=== PATIENT | male | born 1975 | race Two or more races ===

== ENCOUNTER 2017-09-25 21:18 | Inpatient (IN) | payer MEDICAID ==
[~2017-09-25] VITALS: Ht 177.8 cm; Wt 96.2 kg
[2017-09-26 05:57] LABS: Basophils # (auto) 0 uL; Basophils % (auto) 0.4 % (0.0-2.0); Eosinophils # (auto) 0.2 uL; Eosinophils % (auto) 1.7 % (0.0-7.0); Hematocrit 45.4 % (41.0-53.0); Hemoglobin 15.5 g/dL (13.5-17.5); Lymphocytes # (auto) 1.3 uL; Lymphocytes % (auto) 14.8 % (10.0-50.0); Mean Corpuscular Hemoglobin 31.1 pg (28.0-32.0); Mean Corpuscular Hgb Conc. 34.1 g/dL (32.0-36.0); Mean Corpuscular Volume 91.1 fL (80.0-100.0); Mean Platelet Volume 7.2 fL (6.9-10.8); Monocytes # (auto) 0.6 uL; Neutrophils # (auto) 6.9 uL; Neutrophils % (auto) 76.1 % (37.0-80.0); Nucleated Red Blood Cells % 0.1 %; Platelet Count (auto) 279 10^3/uL (140-450); White Blood Cell 9.1 10^3/uL (4.4-10.8)
[2017-09-26 06:26] LABS: Albumin 4.1 g/dL (3.4-5.0); BUN/Creatinine Ratio 20.7; Bilirubin, Total 0.6 mg/dL (0.2-1.0); Calcium 9.4 mg/dL (8.5-10.1); Potassium 3.7 mmol/L (3.5-5.1)
[2017-09-26] MEDS ORDERED: metroNIDAZOLE 500MG/100ML 100 ML IV ONE (08:30)
[2017-09-26] MEDS ORDERED: PIPERACILLIN-TAZOB 3.375GM 50 ML IV ONE (08:30)
[2017-09-26] MEDS ORDERED: NICOTINE 14 MG/24HR TOPICAL PATCH TD ONE (10:15)
[2017-09-26] MEDS ORDERED: DOCUSATE SOD 100 MG CAP PO PRN (10:15)
[2017-09-26] MEDS ORDERED: TEMAZEPAM 15 MG CAP PO PRN (10:15)
[2017-09-26] MEDS ORDERED: ACETAMINOPHEN 325 MG TAB PO PRN (10:15)
[2017-09-26] MEDS ORDERED: ONDANSETRON HCL 4 MG/2 ML VIAL IV PRN (10:15)
[2017-09-26] MEDS ORDERED: DEXTROSE (50%) 50ML SYRG IV PRN (10:30)
[2017-09-26] MEDS ORDERED: VANCOMYCIN PER PHARMACY 0 MG IV SCH (10:30)
[2017-09-26] MEDS ORDERED: IOHEXOL 350 MG/ML 100ML IJ ONE (10:34)
[2017-09-26] MEDS: SODIUM CHLORIDE 0.9% 1,000 ML IV SCH ×2 (11:03→17:20)
[2017-09-26 11:10] LABS: Lactic Acid w/Reflex 7.6 mmol/L (0.4-2.0)
[2017-09-26 11:11] LABS: REFLEX LACTIC ACID YES OR NO YES
[2017-09-26] MEDS: ACCU-CHEK COMFORT CURVE STRIP VI SCH ×3 (11:42→21:17)
[2017-09-26] MEDS: InsuLIN REG 1unit/0.01ml Soln (100units/ml) SC SCH ×3 (11:56→21:18)
[2017-09-26] MEDS ORDERED: VANCOMYCIN 1,500 MG in SODIUM CHL 0.9% 250 ML IV SCH (12:00)
[2017-09-26 13:00] VITALS: BP 119/71
[2017-09-26] MEDS ORDERED: PIPERACILLIN-TAZOB 3.375GM 50 ML IV SCH (15:00)
[2017-09-26 15:31] LABS: Lactic Acid w/Reflex 3.9 mmol/L (0.4-2.0)
[2017-09-26 15:51] LABS: REFLEX LACTIC ACID YES OR NO YES
[2017-09-26 17:00] VITALS: BP 101/65
[2017-09-26] MEDS: HYDROcodone-ACET 5/325MG TAB PO PRN ×2 (17:42→23:19)
[2017-09-26 18:39] LABS: Urine Bilirubin Negative (Negative); Urine Blood Negative /uL (Negative); Urine Color Yellow (Yellow); Urine Glucose 1+ mg/dL (Normal); Urine Ketone 1+ (Negative); Urine Mucus FEW (None Seen); Urine Nitrite Negative (Negative); Urine RBC 5 /hpf (0 - 3); Urine Urobilinogen Normal (Negative)
[2017-09-26] MEDS: FAMOTIDINE 20 MG TAB PO SCH (21:17)
[2017-09-26] MEDS: ASCORBIC ACID 500 MG TAB PO SCH (21:17)
[2017-09-26] MEDS: INSULIN DETEMIR(LEVEMIR) 1unit/0.01ml Soln (100units/ml) SC SCH (21:18)
[2017-09-26 22:00] VITALS: BP 108/66
[2017-09-26] MEDS: VANCOMYCIN 1,500 MG in D5W 5% 250 ML IV SCH (23:19)
[2017-09-27] MEDS ORDERED: INSLANTI SC (02:25)
[2017-09-27] MEDS: SODIUM CHLORIDE 0.9% 1,000 ML IV SCH ×3 (02:49→19:29)
[2017-09-27 05:00] VITALS: BP 103/68
[2017-09-27] MEDS: InsuLIN REG 1unit/0.01ml Soln (100units/ml) SC SCH ×4 (06:11→22:04)
[2017-09-27] MEDS: ACCU-CHEK COMFORT CURVE STRIP VI SCH ×4 (06:11→21:58)
[2017-09-27 07:10] LABS: Basophils # (auto) 0 uL; Basophils % (auto) 0.4 % (0.0-2.0); Eosinophils # (auto) 0.1 uL; Eosinophils % (auto) 1.8 % (0.0-7.0); Hematocrit 41.6 % (41.0-53.0); Lymphocytes # (auto) 1.4 uL; Lymphocytes % (auto) 19.7 % (10.0-50.0); Mean Corpuscular Hemoglobin 30.6 pg (28.0-32.0); Mean Corpuscular Hgb Conc. 33.6 g/dL (32.0-36.0); Mean Platelet Volume 7.4 fL (6.9-10.8); Monocytes # (auto) 0.3 uL; Monocytes % (auto) 4.4 % (0.0-12.0); Neutrophils # (auto) 5.3 uL; Neutrophils % (auto) 73.7 % (37.0-80.0); Nucleated Red Blood Cells % 0.2 %; Platelet Count (auto) 176 10^3/uL (140-450); Red Cell Distribution Width 13.2 % (11.8-14.3); White Blood Cell 7.2 10^3/uL (4.4-10.8)
[2017-09-27 07:38] LABS: Albumin 2.9 g/dL (3.4-5.0); BUN/Creatinine Ratio 31.5; Calcium 8.7 mg/dL (8.5-10.1); Potassium 3.2 mmol/L (3.5-5.1)
[2017-09-27 08:13] LABS: Bilirubin, Total 0.4 mg/dL (0.2-1.0); Total Protein 6.4 g/dL (6.4-8.2)
[2017-09-27] MEDS: NICOTINE 14 MG/24HR TOPICAL PATCH TD SCH (08:45)
[2017-09-27] MEDS: FAMOTIDINE 20 MG TAB PO SCH ×2 (08:46→21:57)
[2017-09-27] MEDS: MULTIPLE VITAMIN TAB PO SCH (08:46)
[2017-09-27] MEDS: LEVOFLOXACIN 500MG 100 ML IV SCH (08:46)
[2017-09-27] MEDS: ASCORBIC ACID 500 MG TAB PO SCH ×2 (08:46→21:57)
[2017-09-27] MEDS: ZINC SULFATE 220 MG CAP PO SCH (08:46)
[2017-09-27 09:00] VITALS: BP 96/60
[2017-09-27] MEDS ORDERED: POTASSIUM CHLORIDE 40 MEQ, LIDOCAINE 1% (LOCAL ANESTH.) 4 ML in SODIUM CHL 0.9% 250 ML IV ONE (10:15)
[2017-09-27] MEDS: VANCOMYCIN 1,500 MG in D5W 5% 250 ML IV SCH (11:59)
[2017-09-27 13:00] VITALS: BP 104/68
[2017-09-27 17:00] VITALS: BP 122/76
[2017-09-27] MEDS: INSULIN DETEMIR(LEVEMIR) 1unit/0.01ml Soln (100units/ml) SC SCH (22:05)
[2017-09-27] MEDS: HYDROcodone-ACET 5/325MG TAB PO PRN (22:06)
[2017-09-27 22:14] VITALS: BP 128/86
[2017-09-28] MEDS: SODIUM CHLORIDE 0.9% 1,000 ML IV SCH ×3 (03:49→20:29)
[2017-09-28 04:52] VITALS: BP 109/74
[2017-09-28 06:03] LABS: Basophils # (auto) 0 uL; Basophils % (auto) 0.7 % (0.0-2.0); Eosinophils # (auto) 0.3 uL; Eosinophils % (auto) 4.6 % (0.0-7.0); Hemoglobin 13.3 g/dL (13.5-17.5); Lymphocytes # (auto) 2.2 uL; Lymphocytes % (auto) 34.4 % (10.0-50.0); Mean Corpuscular Hemoglobin 30.8 pg (28.0-32.0); Mean Corpuscular Hgb Conc. 34.1 g/dL (32.0-36.0); Mean Corpuscular Volume 90.5 fL (80.0-100.0); Mean Platelet Volume 7.4 fL (6.9-10.8); Monocytes # (auto) 0.7 uL; Monocytes % (auto) 10.9 % (0.0-12.0); Neutrophils # (auto) 3.2 uL; Neutrophils % (auto) 49.4 % (37.0-80.0); Platelet Count (auto) 177 10^3/uL (140-450); Red Cell Distribution Width 13.1 % (11.8-14.3); White Blood Cell 6.5 10^3/uL (4.4-10.8)
[2017-09-28 06:24] LABS: Albumin 2.9 g/dL (3.4-5.0); BUN/Creatinine Ratio 33.9; Calcium 8.3 mg/dL (8.5-10.1); Potassium 3.6 mmol/L (3.5-5.1)
[2017-09-28 06:31] LABS: Bilirubin, Total 0.3 mg/dL (0.2-1.0); Total Protein 6.1 g/dL (6.4-8.2)
[2017-09-28] MEDS: ACCU-CHEK COMFORT CURVE STRIP VI SCH ×4 (06:34→22:00)
[2017-09-28] MEDS: InsuLIN REG 1unit/0.01ml Soln (100units/ml) SC SCH ×4 (06:35→22:12)
[2017-09-28 08:00] VITALS: BP 100/54
[2017-09-28 09:25] VITALS: BP 100/54
[2017-09-28] MEDS: ASCORBIC ACID 500 MG TAB PO SCH ×2 (09:47→22:23)
[2017-09-28] MEDS: FAMOTIDINE 20 MG TAB PO SCH ×2 (09:47→22:00)
[2017-09-28] MEDS: LEVOFLOXACIN 500MG 100 ML IV SCH (09:47)
[2017-09-28] MEDS: MULTIPLE VITAMIN TAB PO SCH (09:47)
[2017-09-28] MEDS: NICOTINE 14 MG/24HR TOPICAL PATCH TD SCH (09:48)
[2017-09-28] MEDS: ZINC SULFATE 220 MG CAP PO SCH (09:48)
[2017-09-28] MEDS: VANCOMYCIN 1,500 MG in D5W 5% 250 ML IV SCH ×4 (11:57→23:45)
[2017-09-28 13:14] VITALS: BP 133/84
[2017-09-28 17:09] VITALS: BP 130/81
[2017-09-28] MEDS: HYDROcodone-ACET 5/325MG TAB PO PRN ×2 (21:06→22:53)
[2017-09-28 22:00] VITALS: BP 119/79
[2017-09-28] MEDS: INSULIN DETEMIR(LEVEMIR) 1unit/0.01ml Soln (100units/ml) SC SCH (22:11)
[2017-09-29] MEDS: VANCOMYCIN 1,500 MG in D5W 5% 250 ML IV SCH (00:01)
[2017-09-29] MEDS: SODIUM CHLORIDE 0.9% 1,000 ML IV SCH ×2 (04:55→13:09)
[2017-09-29 05:00] VITALS: BP 103/61
[2017-09-29] MEDS: InsuLIN REG 1unit/0.01ml Soln (100units/ml) SC SCH ×2 (06:46→11:29)
[2017-09-29 06:48] LABS: BUN/Creatinine Ratio 26.9; Calcium 8.6 mg/dL (8.5-10.1)
[2017-09-29] MEDS: ACCU-CHEK COMFORT CURVE STRIP VI SCH ×2 (07:00→11:19)
[2017-09-29 08:00] VITALS: BP 121/77
[2017-09-29 09:09] VITALS: BP 121/77
[2017-09-29] MEDS: NICOTINE 14 MG/24HR TOPICAL PATCH TD SCH (09:15)
[2017-09-29] MEDS: ZINC SULFATE 220 MG CAP PO SCH (09:15)
[2017-09-29] MEDS: LEVOFLOXACIN 500MG 100 ML IV SCH (09:15)
[2017-09-29] MEDS: MULTIPLE VITAMIN TAB PO SCH (09:16)
[2017-09-29] MEDS: FAMOTIDINE 20 MG TAB PO SCH (09:16)
[2017-09-29] MEDS: ASCORBIC ACID 500 MG TAB PO SCH (09:16)
[2017-09-29 11:56] VITALS: BP 115/71
[2017-09-29 12:13] VITALS: BP 115/71
== END 2017-09-29 13:50 | disposition home or self-care (01) | DRG 720 ==
LOC: ER 21:18 → OVERFLOW 21:19 → EDBD 21:19 → EAST 09-26 12:38
PROVIDERS: ADMIT Internal Medicine; ATTEND Internal Medicine
DX: A41.9 Sepsis, unspecified organism (principal); E44.0 Moderate protein-calorie malnutrition; E87.1 Hypo-osmolality and hyponatremia; E11.65 Type 2 diabetes mellitus with hyperglycemia; E87.6 Hypokalemia; L03.031 Cellulitis of right toe; Z79.4 Long term (current) use of insulin; Z83.3 Family history of diabetes mellitus; Z91.14 Patient's other noncompliance with medication regimen; Z68.30 Body mass index [BMI] 30.0-30.9, adult
CPT/HCPCS: 36415; 71275; 73660; 73700; 80048; 80053; 80202; 81001; 82010; 82962; 83036; 83605; 84443; 85025; 87040; 87077; 87186; 93005; 96365; 96367; 96375; J1815; J1956; J2001; J2405; J2543; J3490; J7060

== ENCOUNTER 2017-10-22 11:08 | Emergency (ER) | payer MEDICAID ==
[~2017-10-22] VITALS: Ht 177.8 cm; Wt 81.6 kg
[~2017-10-22 11:08] MED LIST: INSLANTI SC
[2017-10-22] MEDS ORDERED: SODIUM CHLORIDE 0.9% 1,000 ML IV ONE (11:30)
[2017-10-22] MEDS ORDERED: InsuLIN REG 1unit/0.01ml Soln (100units/ml) IV ONE (11:30)
[2017-10-22 11:53] VITALS: BP 129/81
== END 2017-10-22 12:47 | disposition home or self-care (01) ==
LOC: ER 11:08 → EDBD 11:08 → ER 12:47
DX: E11.65 Type 2 diabetes mellitus with hyperglycemia (principal)
CPT/HCPCS: 82962; 96374; 99284; J1815

== ENCOUNTER 2019-12-20 18:14 | Emergency (ER) | payer MEDICAID ==
[~2019-12-20] VITALS: Ht 180.3 cm; Wt 72.6 kg
[2019-12-20 18:54] LABS: Basophils # (auto) 0.1 uL; Eosinophils # (auto) 0.1 uL; Eosinophils % (auto) 1.4 % (0.0-7.0); Hematocrit 45.9 % (41.0-53.0); Hemoglobin 15.7 g/dL (13.5-17.5); Mean Corpuscular Hemoglobin 30.8 pg (28.0-32.0); Mean Corpuscular Hgb Conc. 34.1 g/dL (32.0-36.0); Mean Corpuscular Volume 90.3 fL (80.0-100.0); Monocytes # (auto) 0.5 uL; Monocytes % (auto) 6.2 % (0.0-12.0); Neutrophils # (auto) 4.9 uL; Neutrophils % (auto) 65.4 % (37.0-80.0); Nucleated Red Blood Cells % 0.1 %; Platelet Count (auto) 314 10^3/uL (140-450); Red Blood Cells 5.08 10^6/uL (4.5-5.90); Red Cell Distribution Width 13.4 % (11.8-14.3); White Blood Cell 7.5 10^3/uL (4.4-10.8)
[2019-12-20 19:13] LABS: Albumin 4.2 g/dL (3.4-5.0); Calcium 9.6 mg/dL (8.5-10.1); Potassium 3.5 mmol/L (3.5-5.1)
[2019-12-20 19:16] LABS: BUN/Creatinine Ratio 23.4; Bilirubin, Total 0.4 mg/dL (0.2-1.0); Total Protein 7.9 g/dL (6.4-8.2)
[2019-12-20 19:28] LABS: Urine Bacteria NONE SEEN /hpf (None Seen); Urine Blood Negative /uL (Negative); Urine Mucus FEW (None Seen); Urine Specific Gravity 1.006 (1.001-1.035); Urine WBC 2 /hpf (0 - 3)
[2019-12-20] MEDS ORDERED: SODIUM CHLORIDE 0.9% 1,000 ML IVB ONE (20:29)
[2019-12-20] MEDS ORDERED: SODIUM CHLORIDE 0.9% 1,000 ML IV ONE (20:30)
[2019-12-20] MEDS ORDERED: MORPHINE SULF INJ 2 MG/ML SYRINGE 1ML IV ONE (20:30)
[2019-12-20] MEDS: PROMETHAZINE HCL 25 MG/ML 1ML IV PRN ×2 (21:56→22:22)
[2019-12-21] MEDS ORDERED: ONDANSETRON ODT 4 MG TAB PO ONE (01:00)
[2019-12-21] MEDS: PROMETHAZINE HCL 25 MG/ML 1ML IV PRN (01:09)
[2019-12-21 01:10] VITALS: BP 113/72
== END 2019-12-21 01:17 | disposition home or self-care (01) ==
LOC: ER 18:14
DX: R11.2 Nausea with vomiting, unspecified (principal); R10.9 Unspecified abdominal pain; E11.9 Type 2 diabetes mellitus without complications; F17.210 Nicotine dependence, cigarettes, uncomplicated; Z88.0 Allergy status to penicillin; Z88.8 Allergy status to other drugs, medicaments and biological substances
CPT/HCPCS: 36415; 74176; 80053; 81001; 83690; 83735; 85025; 96361; 96374; 96375; 99284; J2270; J2550; Q0162

== ENCOUNTER 2021-04-11 15:00 | Emergency (ER) | payer MEDICAID ==
[~2021-04-11] VITALS: Ht 180.3 cm; Wt 77.1 kg
[2021-04-11] MEDS ORDERED: InsuLIN REG 1unit/0.01ml Soln (100units/ml) IV ONE (15:15)
[2021-04-11] MEDS ORDERED: MORPHINE SULFATE 4 MG/ML SYR/VIAL IV ONE (15:15)
[2021-04-11] MEDS ORDERED: SODIUM CHLORIDE 0.9% 1,000 ML IV ONE ×2 (15:15)
[2021-04-11] MEDS ORDERED: PROCHLORPERAZINE EDISYLATE 5 MG/ML 2ML VIAL IV ONE (15:15)
[2021-04-11 15:29] LABS: Basophils # (auto) 0.1 10 ^3/uL (0-0.2); Basophils % (auto) 0.7 % (0.0-2.0); Eosinophils # (auto) 0.1 10 ^3/uL (0-0.8); Eosinophils % (auto) 1.4 % (0.0-7.0); Hematocrit 43.9 % (41.0-53.0); Hemoglobin 15.2 g/dL (13.5-17.5); Lymphocytes # (auto) 1.7 10 ^3/uL (0.4-5.4); Lymphocytes % (auto) 16.2 % (10.0-50.0); Mean Corpuscular Hemoglobin 31.3 pg (28.0-32.0); Mean Corpuscular Hgb Conc. 34.6 g/dL (32.0-36.0); Mean Corpuscular Volume 90.6 fL (80.0-100.0); Monocytes # (auto) 0.4 10 ^3/uL (0-1.3); Monocytes % (auto) 4.2 % (0.0-12.0); Neutrophils # (auto) 7.9 10 ^3/uL (1.6-8.6); Neutrophils % (auto) 77.5 % (37.0-80.0); Nucleated Red Blood Cells % 0.1 %; Platelet Count (auto) 330 10^3/uL (140-450); Red Blood Cells 4.85 10^6/uL (4.5-5.90); Red Cell Distribution Width 13.5 % (11.8-14.3); White Blood Cell 10.2 10^3/uL (4.4-10.8)
[2021-04-11 15:59] LABS: Albumin 4.5 g/dL (3.4-5.0); Anion Gap 8 (5-15); Blood Urea Nitrogen 16 mg/dL (7-18); Carbon Dioxide 25 mmol/L (21-32); Chloride 103 mmol/L (98-107); Glucose 234 mg/dL (74-106); Potassium 3.8 mmol/L (3.5-5.1); Sodium 136 mmol/L (136-145)
[2021-04-11 16:08] LABS: Alanine Aminotransferase 41 U/L (16-61); Alkaline Phosphatase 106 U/L (45-117); Aspartate Aminotransferase 17 U/L (15-37); BUN/Creatinine Ratio 20.3; Bilirubin, Total 0.6 mg/dL (0.2-1.0); GFR African American 136 mL/min; GFR Non-African American 113 mL/min; Total Protein 8.3 g/dL (6.4-8.2)
[2021-04-11 16:47] LABS: Alcohol, Urine < 3.0 mg/dL (0-10); Amphetamine Screen, Urine NEGATIVE (NEGATIVE); Barbiturate Scree,Urine NEGATIVE (NEGATIVE); Benzodiazephine Screen, Urine NEGATIVE (NEGATIVE); Cannabinoid Screen, Urine POSITIVE (NEGATIVE); Cocaine Screen, Urine NEGATIVE (NEGATIVE); Opiate Scree,Urine POSITIVE (NEGATIVE); Phencyclidine Screen, Urine NEGATIVE (NEGATIVE)
[2021-04-11 17:10] VITALS: BP 111/68
== END 2021-04-11 17:13 | disposition home or self-care (01) ==
LOC: ER 15:01
DX: E13.9 Other specified diabetes mellitus without complications (principal); F12.10 Cannabis abuse, uncomplicated; F17.210 Nicotine dependence, cigarettes, uncomplicated; Z79.4 Long term (current) use of insulin; Z88.1 Allergy status to other antibiotic agents; Z88.8 Allergy status to other drugs, medicaments and biological substances
CPT/HCPCS: 36415; 74176; 80053; 80307; 82010; 84484; 85025; 96361; 96374; 96375; 99284; J0780; J1815; J2270; J7030

== ENCOUNTER 2021-05-09 09:34 | Emergency (ER) | payer MEDICAID ==
[~2021-05-09] VITALS: Ht 177.8 cm; Wt 68.0 kg
[2021-05-09] MEDS ORDERED: MORPHINE SULFATE 4 MG/ML SYR/VIAL IV ONE (10:00)
[2021-05-09] MEDS ORDERED: SODIUM CHLORIDE 0.9% 1,000 ML IV ONE ×2 (10:00)
[2021-05-09] MEDS ORDERED: PROCHLORPERAZINE EDISYLATE 5 MG/ML 2ML VIAL IV ONE (10:00)
[2021-05-09 10:10] LABS: Basophils # (auto) 0.1 10 ^3/uL (0-0.2); Basophils % (auto) 0.9 % (0.0-2.0); Eosinophils # (auto) 0.1 10 ^3/uL (0-0.8); Eosinophils % (auto) 1.6 % (0.0-7.0); Hematocrit 39.7 % (41.0-53.0); Hemoglobin 13.9 g/dL (13.5-17.5); Lymphocytes # (auto) 1.6 10 ^3/uL (0.4-5.4); Lymphocytes % (auto) 25.4 % (10.0-50.0); Mean Corpuscular Hemoglobin 32.5 pg (28.0-32.0); Mean Corpuscular Hgb Conc. 35.1 g/dL (32.0-36.0); Mean Corpuscular Volume 92.7 fL (80.0-100.0); Monocytes # (auto) 0.3 10 ^3/uL (0-1.3); Monocytes % (auto) 4.9 % (0.0-12.0); Neutrophils # (auto) 4.3 10 ^3/uL (1.6-8.6); Neutrophils % (auto) 67.2 % (37.0-80.0); Nucleated Red Blood Cells % 0.1 %; Red Blood Cells 4.28 10^6/uL (4.5-5.90); Red Cell Distribution Width 13.6 % (11.8-14.3); White Blood Cell 6.4 10^3/uL (4.4-10.8)
[2021-05-09 10:25] LABS: Urine WBC None Seen /hpf (0 - 3)
[2021-05-09 10:31] LABS: Albumin 4.1 g/dL (3.4-5.0); Calcium 8.8 mg/dL (8.5-10.1); Potassium 3.9 mmol/L (3.5-5.1)
[2021-05-09 10:36] LABS: BUN/Creatinine Ratio 12.5; Bilirubin, Total 0.7 mg/dL (0.2-1.0); Total Protein 7.8 g/dL (6.4-8.2)
[2021-05-09 10:44] LABS: Urine Bacteria NONE SEEN /hpf (None Seen); Urine Blood Negative /uL (Negative); Urine Mucus FEW (None Seen)
[2021-05-09 12:25] LABS: Alcohol, Urine < 3.0 mg/dL (0-10); Amphetamine Screen, Urine NEGATIVE (NEGATIVE); Barbiturate Scree,Urine NEGATIVE (NEGATIVE); Benzodiazephine Screen, Urine NEGATIVE (NEGATIVE); Cannabinoid Screen, Urine POSITIVE (NEGATIVE); Cocaine Screen, Urine NEGATIVE (NEGATIVE); Opiate Scree,Urine NEGATIVE (NEGATIVE); Phencyclidine Screen, Urine NEGATIVE (NEGATIVE)
[2021-05-09 12:44] VITALS: BP 126/56
== END 2021-05-09 13:25 | disposition home or self-care (01) ==
LOC: ER 09:34
DX: F12.188 Cannabis abuse with other cannabis-induced disorder (principal); E11.65 Type 2 diabetes mellitus with hyperglycemia; F17.210 Nicotine dependence, cigarettes, uncomplicated; F12.10 Cannabis abuse, uncomplicated; Z88.5 Allergy status to narcotic agent
CPT/HCPCS: 36415; 36600; 74176; 80053; 80307; 81001; 82805; 83036; 83690; 84702; 85025; 85049; 96361; 96374; 96375; 99285; J0780; J2270; J7030

== ENCOUNTER 2021-05-10 20:56 | Inpatient (IN) | payer MEDICAID ==
[~2021-05-10] VITALS: Ht 177.8 cm; Wt 73.2 kg
[2021-05-10 22:20] LABS: Basophils # (auto) 0.1 10 ^3/uL (0-0.2); Basophils % (auto) 0.4 % (0.0-2.0); Eosinophils # (auto) 0.2 10 ^3/uL (0-0.8); Hematocrit 41.4 % (41.0-53.0); Hemoglobin 14.1 g/dL (13.5-17.5); Lymphocytes # (auto) 1.6 10 ^3/uL (0.4-5.4); Lymphocytes % (auto) 9.9 % (10.0-50.0); Mean Corpuscular Hemoglobin 31.1 pg (28.0-32.0); Mean Corpuscular Hgb Conc. 34.1 g/dL (32.0-36.0); Mean Corpuscular Volume 91.2 fL (80.0-100.0); Monocytes % (auto) 6.3 % (0.0-12.0); Neutrophils # (auto) 13.7 10 ^3/uL (1.6-8.6); Neutrophils % (auto) 82.4 % (37.0-80.0); Red Blood Cells 4.54 10^6/uL (4.5-5.90); Red Cell Distribution Width 13.9 % (11.8-14.3); White Blood Cell 16.6 10^3/uL (4.4-10.8)
[2021-05-10 22:39] LABS: Albumin 4.3 g/dL (3.4-5.0); Calcium 8.9 mg/dL (8.5-10.1); Potassium 3.8 mmol/L (3.5-5.1)
[2021-05-10 22:42] LABS: BUN/Creatinine Ratio 20.8; Bilirubin, Total 0.6 mg/dL (0.2-1.0); Total Protein 7.8 g/dL (6.4-8.2)
[2021-05-10] MEDS ORDERED: SODIUM CHLORIDE 0.9% 1,000 ML IV ONE (23:00)
[2021-05-10] MEDS ORDERED: ONDANSETRON HCL 4 MG/2 ML VIAL IV ONE (23:00)
[2021-05-10] MEDS ORDERED: MORPHINE SULF INJ 2 MG/ML SYRINGE 1ML IV ONE (23:00)
[2021-05-11] MEDS ORDERED: metroNIDAZOLE 500MG/100ML 100 ML IV ONE
[2021-05-11] MEDS ORDERED: cefTRIAXone 1GM/50ML D5W 50 ML IV ONE
[2021-05-11] MEDS ORDERED: NITROGLYCERIN 0.4 MG SL TAB SL PRN (00:45)
[2021-05-11] MEDS ORDERED: hydrALAZINE HCL 20 MG/ML VL IV PRN (00:45)
[2021-05-11] MEDS ORDERED: MORPHINE SULF INJ 2 MG/ML SYRINGE 1ML IV PRN ×2 (00:45)
[2021-05-11 00:50] LABS: Urine Bacteria FEW /hpf (None Seen); Urine Blood Negative /uL (Negative); Urine Hyaline Cast FEW /lpf (0 - 2); Urine Mucus FEW (None Seen); Urine Specific Gravity 1.037 (1.001-1.035); Urine WBC 2 /hpf (0 - 3)
[2021-05-11 01:33] LABS: INR 1.08 (0.9-1.15); Partial Thromboplastin Time 28.9 sec (23.0-31.2)
[2021-05-11] MEDS ORDERED: SODIUM CHLORIDE 0.9% 1,000 ML IV ONE (01:45)
[2021-05-11 03:52] VITALS: BP 134/76
[2021-05-11] MEDS: SODIUM CHLORIDE 0.9% 1,000 ML IV SCH ×4 (04:00→20:45)
[2021-05-11] MEDS ORDERED: GABA300C10 PO (04:26)
[2021-05-11] MEDS ORDERED: LORA1TAB23 PO (04:26)
[2021-05-11] MEDS ORDERED: ONDA-144 PO (04:26)
[2021-05-11 05:00] VITALS: BP 114/67
[2021-05-11] MEDS: metroNIDAZOLE 500MG/100ML 100 ML IV SCH ×3 (05:41→21:31)
[2021-05-11] MEDS ORDERED: PIPERACILLIN-TAZOB 3.375GM 100 ML IV SCH (06:00)
[2021-05-11 07:12] LABS: Basophils # (auto) 0 10 ^3/uL (0-0.2); Basophils % (auto) 0.2 % (0.0-2.0); Eosinophils # (auto) 0 10 ^3/uL (0-0.8); Eosinophils % (auto) 0.3 % (0.0-7.0); Hematocrit 38.3 % (41.0-53.0); Hemoglobin 13.5 g/dL (13.5-17.5); Lymphocytes # (auto) 1.7 10 ^3/uL (0.4-5.4); Lymphocytes % (auto) 9.6 % (10.0-50.0); Mean Corpuscular Hemoglobin 31.9 pg (28.0-32.0); Mean Corpuscular Hgb Conc. 35.2 g/dL (32.0-36.0); Mean Corpuscular Volume 90.6 fL (80.0-100.0); Monocytes # (auto) 1.3 10 ^3/uL (0-1.3); Monocytes % (auto) 7.6 % (0.0-12.0); Neutrophils # (auto) 14.2 10 ^3/uL (1.6-8.6); Neutrophils % (auto) 82.3 % (37.0-80.0); Nucleated Red Blood Cells % 0.1 %; Red Blood Cells 4.23 10^6/uL (4.5-5.90); Red Cell Distribution Width 13.5 % (11.8-14.3); White Blood Cell 17.2 10^3/uL (4.4-10.8)
[2021-05-11 07:28] LABS: Albumin 3.7 g/dL (3.4-5.0); Calcium 8.3 mg/dL (8.5-10.1); Potassium 3.5 mmol/L (3.5-5.1)
[2021-05-11 07:33] LABS: BUN/Creatinine Ratio 21.1; Bilirubin, Total 0.7 mg/dL (0.2-1.0); Total Protein 6.9 g/dL (6.4-8.2)
[2021-05-11] MEDS: ONDANSETRON HCL 4 MG/2 ML VIAL IV PRN ×2 (08:51→14:58)
[2021-05-11] MEDS: PANTOPRAZOLE 40 MG/10 ML VIAL INJ IV SCH (08:52)
[2021-05-11] MEDS: levoFLOXacin 500MG 100 ML IV SCH (08:52)
[2021-05-11 09:00] VITALS: BP 106/57
[2021-05-11] MEDS: HYDROcodone-ACET 5/325MG TAB PO PRN ×2 (10:19→18:10)
[2021-05-11] MEDS: LORazepam 0.5 MG TAB PO PRN ×3 (10:19→23:00)
[2021-05-11] MEDS ORDERED: LIDOCAINE W/ EPINEPHRINE 1% 20ML VIAL ONE (10:54)
[2021-05-11] MEDS ORDERED: BUPIVACAINE 0.25% INJ 50ML VIAL ONE (10:54)
[2021-05-11] MEDS ORDERED: MIDAZOLAM HCL 1MG/1ML-2 ML VIAL ONE (11:18)
[2021-05-11] MEDS ORDERED: PROPOFOL 10 MG/ML 20 ML IV ONE (11:18)
[2021-05-11] MEDS ORDERED: ONDANSETRON HCL 4 MG/2 ML VIAL ONE (11:18)
[2021-05-11] MEDS ORDERED: SUCCINYLCHOLINE CHLORIDE 20 MG/ML 10ML VIAL IV ONE (11:18)
[2021-05-11] MEDS ORDERED: ROCURONIUM 10MG/ML 10ML VIAL IV ONE (11:18)
[2021-05-11] MEDS ORDERED: LIDOCAINE 2% (LOCAL ANESTH.) PF 5ml SDV ONE (11:18)
[2021-05-11] MEDS ORDERED: KETOROLAC TROMETH 30 MG/ML 1ML VIAL ONE (11:18)
[2021-05-11] MEDS ORDERED: fentaNYL CITRATE 100 MCG/2 ML VL ONE ×2 (11:18→12:03)
[2021-05-11] MEDS ORDERED: HYDROmorphone HCL 2 MG/ML VL ONE (11:18)
[2021-05-11] MEDS ORDERED: ACCU-CHEK COMFORT CURVE STRIP VI ONE (12:45)
[2021-05-11] MEDS ORDERED: ONDANSETRON HCL 4 MG/2 ML VIAL IV PRN (12:45)
[2021-05-11] MEDS ORDERED: HYDROmorphone HCL 2 MG/ML VL IV PRN (12:45)
[2021-05-11 13:25] VITALS: BP 146/79
[2021-05-11 17:31] VITALS: BP 124/71
[2021-05-11 22:00] VITALS: BP 116/60
[2021-05-12] MEDS: SODIUM CHLORIDE 0.9% 1,000 ML IV SCH ×3 (03:39→16:29)
[2021-05-12 05:00] VITALS: BP 109/60
[2021-05-12] MEDS: metroNIDAZOLE 500MG/100ML 100 ML IV SCH ×2 (05:34→14:00)
[2021-05-12 06:17] LABS: Basophils # (auto) 0 10 ^3/uL (0-0.2); Basophils % (auto) 0.1 % (0.0-2.0); Eosinophils # (auto) 0 10 ^3/uL (0-0.8); Eosinophils % (auto) 0.1 % (0.0-7.0); Hematocrit 28.8 % (41.0-53.0); Hemoglobin 10.4 g/dL (13.5-17.5); Lymphocytes # (auto) 1.7 10 ^3/uL (0.4-5.4); Lymphocytes % (auto) 12.7 % (10.0-50.0); Mean Corpuscular Hemoglobin 32.5 pg (28.0-32.0); Mean Corpuscular Hgb Conc. 36.3 g/dL (32.0-36.0); Mean Corpuscular Volume 89.6 fL (80.0-100.0); Monocytes # (auto) 0.8 10 ^3/uL (0-1.3); Monocytes % (auto) 6.2 % (0.0-12.0); Neutrophils % (auto) 80.9 % (37.0-80.0); Red Blood Cells 3.21 10^6/uL (4.5-5.90); Red Cell Distribution Width 13.5 % (11.8-14.3); White Blood Cell 13.6 10^3/uL (4.4-10.8)
[2021-05-12 06:29] LABS: Calcium 7.8 mg/dL (8.5-10.1); Potassium 3.7 mmol/L (3.5-5.1)
[2021-05-12 06:33] LABS: BUN/Creatinine Ratio 18.8; Bilirubin, Total 0.6 mg/dL (0.2-1.0)
[2021-05-12 08:00] VITALS: BP 127/75
[2021-05-12] MEDS: levoFLOXacin 500MG 100 ML IV SCH (09:46)
[2021-05-12] MEDS: PANTOPRAZOLE 40 MG/10 ML VIAL INJ IV SCH (09:46)
[2021-05-12 12:47] VITALS: BP 106/65
[2021-05-12] MEDS ORDERED: CEPH-322 PO (16:51)
[2021-05-12 16:54] VITALS: BP 106/65
== END 2021-05-12 16:00 | disposition home or self-care (01) | DRG 234 ==
LOC: ER 20:56 → TELE 05-11 00:41 → TELE-WESTW 05-11 02:19
PROVIDERS: ADMIT Internal Medicine; ATTEND Internal Medicine
PROC: 3E013GC Introduction of Other Therapeutic Substance into Subcutaneous Tissue, Percutaneous Approach (ICD-10-PCS; 2021-05-11)
PROC: 0DTJ4ZZ Resection of Appendix, Percutaneous Endoscopic Approach (ICD-10-PCS; principal; 2021-05-11 11:32)
DX: K35.80 Unspecified acute appendicitis (principal); E11.65 Type 2 diabetes mellitus with hyperglycemia; F12.10 Cannabis abuse, uncomplicated; F17.210 Nicotine dependence, cigarettes, uncomplicated; Z20.822 Contact with and (suspected) exposure to COVID-19; F41.9 Anxiety disorder, unspecified; Z83.3 Family history of diabetes mellitus; Z82.49 Family history of ischemic heart disease and other diseases of the circulatory system; Z88.1 Allergy status to other antibiotic agents; Z88.8 Allergy status to other drugs, medicaments and biological substances
CPT/HCPCS: 36415; 71045; 74176; 80053; 81001; 82962; 83605; 83690; 85025; 85049; 85610; 85730; 86850; 86900; 86901; 87426; 93005; 96361; 96365; 96368; C9113; G0378; J0330; J0696; J1885; J1956; J2001; J2250; J2405; J2704; J3490

== ENCOUNTER 2022-10-28 08:52 | Emergency (ER) | payer MEDICAID ==
[~2022-10-28] VITALS: Ht 180.3 cm; Wt 81.4 kg
[~2022-10-28 08:52] MED LIST changes: +CEPH-322 PO; +GABA300C10 PO; -INSLANTI SC; +LORA1TAB23 PO; +ONDA-144 PO
[2022-10-28 09:14] VITALS: BP 157/79
[2022-10-28] MEDS ORDERED: KETOROLAC TROMETH 30 MG/ML 1ML VIAL IV ONE (09:30)
[2022-10-28] MEDS ORDERED: METOCLOPRAMIDE HCL 5MG/ml INJ 2ml VIAL IV ONE (09:30)
[2022-10-28 09:39] LABS: Basophils # (auto) 0.1 10 ^3/uL (0-0.2); Basophils % (auto) 0.7 % (0.0-2.0); Eosinophils # (auto) 0.2 10 ^3/uL (0-0.8); Eosinophils % (auto) 1.7 % (0.0-7.0); Hematocrit 40.8 % (41.0-53.0); Lymphocytes # (auto) 1.9 10 ^3/uL (0.4-5.4); Lymphocytes % (auto) 14.6 % (10.0-50.0); Mean Corpuscular Hemoglobin 31.3 pg (28.0-32.0); Mean Corpuscular Hgb Conc. 34.3 g/dL (32.0-36.0); Mean Corpuscular Volume 91.4 fL (80.0-100.0); Monocytes # (auto) 0.5 10 ^3/uL (0-1.3); Monocytes % (auto) 3.5 % (0.0-12.0); Neutrophils # (auto) 10.3 10 ^3/uL (1.6-8.6); Neutrophils % (auto) 79.5 % (37.0-80.0); Nucleated Red Blood Cells % 0.1 %; Red Blood Cells 4.47 10^6/uL (4.5-5.90); Red Cell Distribution Width 13.4 % (11.8-14.3); White Blood Cell 12.9 10^3/uL (4.4-10.8)
[2022-10-28] MEDS ORDERED: SODIUM CHLORIDE 0.9% 1,000 ML IV ONE ×2 (10:00→10:45)
[2022-10-28 10:01] LABS: Albumin 4.5 g/dL (3.4-5.0); Calcium 9.6 mg/dL (8.5-10.1); Potassium 3.8 mmol/L (3.5-5.1)
[2022-10-28 10:04] LABS: BUN/Creatinine Ratio 19.6; Bilirubin, Total 0.4 mg/dL (0.2-1.0); Total Protein 7.5 g/dL (6.4-8.2)
[2022-10-28] MEDS ORDERED: DONNATAL 5ml ORAL Elix (BELLADONNA ALK-PHENOBARB) PO ONE (10:45)
[2022-10-28] MEDS ORDERED: ALUM & MAG HYDROX-SIMETH LIQ(MAALOX) 30 ML PO ONE (10:45)
[2022-10-28] MEDS ORDERED: PANTOPRAZOLE 40 MG TAB PO ONE (10:45)
[2022-10-28 11:57] LABS: Urine Bacteria FEW /hpf (None Seen); Urine Blood Negative /uL (Negative); Urine Specific Gravity 1.033 (1.001-1.035); Urine WBC 1 /hpf (0 - 3)
[2022-10-28] MEDS ORDERED: METF-371 PO (12:24)
[2022-10-28] MEDS ORDERED: PANT40TA2 PO (12:24)
[2022-10-28] MEDS ORDERED: METO-281 PO (12:24)
== END 2022-10-28 12:24 | disposition home or self-care (01) ==
LOC: ER 08:52
DX: R10.13 Epigastric pain (principal); F12.10 Cannabis abuse, uncomplicated; E11.8 Type 2 diabetes mellitus with unspecified complications; F41.9 Anxiety disorder, unspecified; F17.210 Nicotine dependence, cigarettes, uncomplicated; E78.5 Hyperlipidemia, unspecified; Z90.49 Acquired absence of other specified parts of digestive tract; Z88.8 Allergy status to other drugs, medicaments and biological substances; Z79.84 Long term (current) use of oral hypoglycemic drugs
CPT/HCPCS: 36415; 71046; 80053; 81001; 82962; 83690; 83735; 85025; 93005; 96361; 96374; 96375; 99285; J1885; J2765; J7030